=== PATIENT | female | born 1970 | race Two or more races ===

== ENCOUNTER 2017-04-18 18:48 | Emergency (ER) | payer BC, OTHER ==
[~2017-04-18] VITALS: Ht 162.6 cm; Wt 90.7 kg
[2017-04-18] MEDS ORDERED: ACETAMINOPHEN 325 MG TAB PO ONE (20:00)
[2017-04-18] MEDS ORDERED: traMADol HCL 50 MG TAB PO ONE (20:30)
[2017-04-18 21:53] VITALS: BP 140/78
== END 2017-04-18 21:54 | disposition home or self-care (01) ==
LOC: EDBD 18:48 → ER 18:55
DX: G43.909 Migraine, unspecified, not intractable, without status migrainosus (principal); Z86.73 Personal history of transient ischemic attack (TIA), and cerebral infarction without residual deficits
CPT/HCPCS: 70450

== ENCOUNTER 2017-12-12 18:59 | Emergency (ER) | payer SELFPAY ==
[~2017-12-12] VITALS: Ht 162.6 cm; Wt 86.2 kg
[2017-12-12 21:28] VITALS: BP 118/85
== END 2017-12-12 21:31 | disposition home or self-care (01) ==
LOC: EDBD 18:59 → ER 18:59
DX: R51 Headache (principal); G89.29 Other chronic pain; R11.2 Nausea with vomiting, unspecified; R42 Dizziness and giddiness; R53.1 Weakness; Z86.73 Personal history of transient ischemic attack (TIA), and cerebral infarction without residual deficits
CPT/HCPCS: 70450

== ENCOUNTER 2019-04-30 11:12 | Emergency (ER) | payer BC, OTHER ==
[~2019-04-30] VITALS: Ht 160 cm; Wt 86.2 kg
[2019-04-30] MEDS ORDERED: KETOROLAC TROMETH 60MG/2ML VIAL IM ONE (13:30)
[2019-04-30 13:51] VITALS: BP 125/89
== END 2019-04-30 14:15 | disposition home or self-care (01) ==
LOC: ER 11:15
DX: R51 Headache (principal); R05 Cough; R11.0 Nausea; R20.0 Anesthesia of skin; I10 Essential (primary) hypertension
CPT/HCPCS: 70450; 96372; 99284; J1885

== ENCOUNTER → 2020-03-20 | Outpatient (CLI) | payer OTHER ==
[2020-03-20 11:21] LABS: Follicle Stimulating Hormone 1.99 IU/L (SEE BELOW); Leuteinizing Hormone 2.7 IU/L
== END | disposition home or self-care (01) ==
LOC: LAB 10:42
PROVIDERS: ATTEND Obstetrics & Gynecology
DX: N95.1 Menopausal and female climacteric states (principal)
CPT/HCPCS: 36415; 82670; 83001; 83002; 84403; 84443

== ENCOUNTER 2024-01-07 14:36 | Emergency (ER) | payer MEDICARE ==
[~2024-01-07] VITALS: Ht 162.6 cm; Wt 90.9 kg
[~2024-01-07 14:36] MED LIST: CIP500T PO; FAMO20TA10 PO; HYDR-4902 PO; PHEN-1045 PO; ZOFR4T PO
[2024-01-07 14:45] VITALS: PULSE 100; RESP 20; O2SAT 96
[2024-01-07 16:07] LABS: Basophils # (auto) 0.1 10 ^3/uL (0-0.2); Eosinophils # (auto) 0.2 10 ^3/uL (0-0.8); Eosinophils % (auto) 2.2 % (0.0-7.0); Hematocrit 41.1 % (36.0-46.0); Hemoglobin 14.2 g/dL (12.2-16.2); Lymphocytes # (auto) 1.1 10 ^3/uL (0.4-5.4); Lymphocytes % (auto) 13.6 % (10.0-50.0); Mean Corpuscular Hemoglobin 29.3 pg (28.0-32.0); Mean Corpuscular Hgb Conc. 34.4 g/dL (32.0-36.0); Mean Corpuscular Volume 85.2 fL (80.0-100.0); Monocytes # (auto) 0.9 10 ^3/uL (0-1.3); Neutrophils % (auto) 72.2 % (37.0-80.0); Nucleated Red Blood Cells % 0.1 %; Red Blood Cells 4.83 10^6/uL (4.0-5.20); Red Cell Distribution Width 13.9 % (11.8-14.3); White Blood Cell 8.4 10^3/uL (4.4-10.8)
[2024-01-07] MEDS: ONDANSETRON ODT 4 MG TAB PO ONE (16:24)
[2024-01-07 16:40] LABS: Alanine Aminotransferase 121 U/L (7-40); Albumin 4.4 g/dL (3.2-4.8); Alkaline Phosphatase 93 U/L (46-116); Anion Gap 6 (5-15); Aspartate Aminotransferase 130 U/L (13-40); BUN/Creatinine Ratio 15.2 (10.0-20.0); Bilirubin, Total 1.4 mg/dL (0.2-1.0); Blood Urea Nitrogen 10 mg/dL (9-23); Calcium 9.6 mg/dL (8.7-10.4); Carbon Dioxide 25 mmol/L (20-30); Chloride 104 mmol/L (98-107); Glucose 114 mg/dL (74-106); Lipase 24 U/L (12-53); Potassium 4.3 mmol/L (3.5-5.1); Sodium 135 mmol/L (136-145); Total Protein 7.7 g/dL (5.7-8.2)
[2024-01-07] MEDS: HYDROcodone-ACET 10/325MG TAB PO ONE (16:41)
[2024-01-07 18:44] LABS: Urine Bacteria FEW /hpf (None Seen); Urine Blood Negative /uL (Negative); Urine Clarity Ex.Turbid (Clear); Urine Color Yellow (Yellow); Urine Mucus FEW (None Seen); Urine Protein, UAD TRACE (Negative); Urine Urobilinogen Normal (Negative); Urine WBC 3 /hpf (0 - 5)
[2024-01-07 19:40] VITALS: BP 97/63; PULSE 99; RESP 17; TEMP 99; O2SAT 94
[2024-01-07 20:25] LABS: Rapid Influenza A Negative (Negative); Rapid Influenza B Negative (Negative)
[2024-01-07 20:45] LABS: COVID19 ANTIGEN SOFIA FIA POSITIVE (NEGATIVE)
[2024-01-07] MEDS ORDERED: TRAM50TA2 PO (20:54)
[2024-01-07] MEDS ORDERED: ZOFR4T PO (20:54)
[2024-01-07] MEDS ORDERED: IBUP-1455 PO (20:54)
== END 2024-01-07 21:26 | disposition home or self-care (01) ==
LOC: ER 14:36 → EDBD 14:36 → ER 21:26
DX: U07.1 COVID-19 (principal); K76.0 Fatty (change of) liver, not elsewhere classified; I10 Essential (primary) hypertension; Z86.73 Personal history of transient ischemic attack (TIA), and cerebral infarction without residual deficits; Z79.899 Other long term (current) drug therapy
CPT/HCPCS: 36415; 70450; 72100; 74176; 80053; 81001; 83605; 83690; 83880; 84484; 85025; 87426; 87804; 99284; Q0162